=== PATIENT | female | born 1955 | race Native Hawaiian/Other Pacific Islander ===

== ENCOUNTER 2017-11-23 11:34 | Outpatient (CLI) | payer OTHER ==
[2017-11-23 12:19] LABS: PLATELET COUNT 228 K/uL (152-353)
[2017-11-23 13:10] LABS: POTASSIUM 4.1 mmol/L (3.6-5.2)
== END 2017-11-23 22:31 | disposition home or self-care (01) ==
LOC: LABW 11:34
PROVIDERS: Internal Medicine
DX: N18.3 Chronic kidney disease, stage 3 (moderate) (principal); R82.99 Other abnormal findings in urine
CPT/HCPCS: 36415; 80053; 81000; 82043; 82306; 82330; 82570; 82607; 83735; 83970; 84100; 84155; 84439; 84550; 85027; 85651; 86039; 86430; 87077; 87086; 87088; 87186

== ENCOUNTER 2017-12-07 07:10 | Emergency (ER) | payer OTHER ==
[~2017-12-07] VITALS: Ht 162.6 cm; Wt 93.0 kg
[2017-12-07 07:15] VITALS: TEMP 98
[2017-12-07 08:26] LABS: PLATELET COUNT 254 K/uL (152-353)
[2017-12-07 08:30] LABS: POTASSIUM 4.1 mmol/L (3.6-5.2)
[2017-12-07 09:20] VITALS: BP 172/84
== END 2017-12-07 09:20 | disposition home or self-care (01) ==
LOC: ED 07:10
DX: N39.0 Urinary tract infection, site not specified (principal)
CPT/HCPCS: 36600; 80053; 81000; 82805; 83880; 85027; 87077; 87086; 87088; 87186; 93005; 99283

== ENCOUNTER 2017-12-10 08:56 | Outpatient (CLI) | payer OTHER | END 2017-12-10 22:44 | disposition home or self-care (01) | LOC: RESP 08:56 | DX: R06.02 Shortness of breath (principal) ==

== ENCOUNTER 2018-01-11 13:08 | Outpatient (CLI) | payer OTHER ==
[2018-01-11 13:35] LABS: PLATELET COUNT 178 K/uL (152-353)
[2018-01-11 14:04] LABS: POTASSIUM 3.9 mmol/L (3.6-5.2)
== END 2018-01-11 22:50 | disposition home or self-care (01) ==
LOC: LABW 13:08
PROVIDERS: Internal Medicine
DX: N18.3 Chronic kidney disease, stage 3 (moderate) (principal); R60.0 Localized edema; R79.89 Other specified abnormal findings of blood chemistry
CPT/HCPCS: 36415; 80053; 81000; 82043; 82570; 83036; 84155; 84165; 84166; 84439; 84443; 84550; 85027

== ENCOUNTER 2018-02-22 10:46 | Inpatient (IN) | payer OTHER ==
[2018-02-22 17:35] LABS: PLATELET COUNT 173 K/uL (152-353)
[2018-02-22 17:58] LABS: PARTIAL THROMBOPLASTIN TIME 21.9 SECONDS (24.5-33.6)
[2018-02-22 18:46] VITALS: BP 151/77; TEMP 98.1; BMI 35.0
[2018-02-22] MEDS ORDERED: FERROUS SULF325 M1 PO (19:54)
[2018-02-22] MEDS ORDERED: FURO40TA93 PO (19:55)
[2018-02-22] MEDS ORDERED: LISI5TAB10 PO (19:55)
[2018-02-22 20:30] VITALS: BP 155/61; TEMP 97.7
[2018-02-23] VITALS: BP 143/87; TEMP 98.3
[2018-02-23 04:00] VITALS: BP 161/92; TEMP 98.2
[2018-02-23 06:04] LABS: PLATELET COUNT 169 K/uL (152-353)
[2018-02-23 06:19] LABS: POTASSIUM 4.1 mmol/L (3.6-5.2)
[2018-02-23 08:00] VITALS: BP 149/86; TEMP 97.9
[2018-02-23 12:00] VITALS: BP 137/75; TEMP 97.3
[2018-02-23 16:00] VITALS: BP 145/74; TEMP 97.8
[2018-02-23 20:00] VITALS: BP 151/66; TEMP 98.2
[2018-02-24] VITALS: BP 127/64; TEMP 97.6
[2018-02-24 04:00] VITALS: BP 153/67; TEMP 98.1
[2018-02-24 05:06] LABS: PLATELET COUNT 198 K/uL (152-353)
[2018-02-24 05:45] LABS: POTASSIUM 3.8 mmol/L (3.6-5.2)
[2018-02-24 08:00] VITALS: BP 122/74; TEMP 98.8
[2018-02-24 12:00] VITALS: BP 119/71; TEMP 98.6
[2018-02-24 16:00] VITALS: BP 118/69; TEMP 98.6
[2018-02-24 20:14] VITALS: BP 151/83; TEMP 98
[2018-02-25 00:17] VITALS: BP 142/79; TEMP 98.5
[2018-02-25 04:25] VITALS: BP 136/76; TEMP 97.8
[2018-02-25 05:35] LABS: PLATELET COUNT 178 K/uL (152-353)
[2018-02-25 05:56] LABS: POTASSIUM 4.3 mmol/L (3.6-5.2)
[2018-02-25 08:17] VITALS: BP 172/90; TEMP 98
[2018-02-25 12:00] VITALS: BP 131/73; TEMP 97.4
[2018-02-25 16:00] VITALS: BP 135/62; TEMP 98.8
[2018-02-25 19:36] VITALS: BP 146/72; TEMP 98.2
[2018-02-26] VITALS: BP 153/91; TEMP 98.1
[2018-02-26 04:00] VITALS: BP 112/64; TEMP 98.2
[2018-02-26 07:23] LABS: PLATELET COUNT 203 K/uL (152-353)
[2018-02-26 07:34] LABS: POTASSIUM 4.3 mmol/L (3.6-5.2)
[2018-02-26 07:53] VITALS: BP 146/88; TEMP 97.7
[2018-02-26 12:23] VITALS: BP 150/80; TEMP 98.4
[2018-02-26 16:24] VITALS: BP 146/78; TEMP 98.2
[2018-02-26 20:00] VITALS: BP 139/92; TEMP 98
[2018-02-27] VITALS (16 sets, daily range): BP systolic 109–147; BP diastolic 58–83; TEMP 97.8–98.3
[2018-02-27 06:44] LABS: PLATELET COUNT 202 K/uL (152-353)
[2018-02-27 07:15] LABS: POTASSIUM 3.5 mmol/L (3.6-5.2)
[2018-02-28] VITALS (24 sets, daily range): BP systolic 96–149; BP diastolic 38–95; TEMP 97.8–99
[2018-02-28 05:41] LABS: PLATELET COUNT 190 K/uL (152-353)
[2018-02-28 05:59] LABS: POTASSIUM 3.8 mmol/L (3.6-5.2)
[2018-03-01] VITALS (17 sets, daily range): BP systolic 123–156; BP diastolic 57–101; TEMP 98–98.7
[2018-03-01 06:15] LABS: PLATELET COUNT 185 K/uL (152-353)
[2018-03-01 06:23] LABS: POTASSIUM 3.8 mmol/L (3.6-5.2)
[2018-03-01] MEDS ORDERED: MONT10TA PO (14:00)
[2018-03-01] MEDS ORDERED: CEFD300C2 PO (14:00)
[2018-03-01] MEDS ORDERED: PRED20TA27 PO (14:00)
[2018-03-01] MEDS ORDERED: PROAIR HFA IN (14:00)
[2018-03-01] MEDS ORDERED: GUAI600T70 PO (14:00)
[2018-03-01] MEDS ORDERED: LORA10TA3 PO (14:00)
== END 2018-03-01 17:32 | disposition home or self-care (01) | DRG 193 ==
LOC: RAD 10:46 → MED/SURG 15:49 → ICU 02-27 10:35
PROVIDERS: Nurse Practitioner Family; ADMIT Nurse Practitioner
DX: J18.8 Other pneumonia, unspecified organism (principal); I50.23 Acute on chronic systolic (congestive) heart failure; J96.01 Acute respiratory failure with hypoxia; J96.02 Acute respiratory failure with hypercapnia; J44.0 Chronic obstructive pulmonary disease with (acute) lower respiratory infection; J90 Pleural effusion, not elsewhere classified; D50.9 Iron deficiency anemia, unspecified; R06.02 Shortness of breath; R94.31 Abnormal electrocardiogram [ECG] [EKG]; N18.3 Chronic kidney disease, stage 3 (moderate); Z91.14 Patient's other noncompliance with medication regimen
CPT/HCPCS: 36415; 36600; 80053; 82550; 82553; 82805; 83615; 83880; 84145; 84484; 85027; 85610; 85651; 85730; 86140; 87040; 87077; 87185; 87186; 87205; 87899; 93005; 93306; 94640; 94664; 94760; 96365; 96366; 96367; 96372; 96375; J0456; J0696; J1650; J1940; J2543; J2920; J2930; J3370; Q0177

== ENCOUNTER 2018-03-14 09:04 | Outpatient (CLI) | payer OTHER ==
[~2018-03-14 09:04] MED LIST: CEFD300C2 PO; FERROUS SULF325 M1 PO; FURO40TA93 PO; GUAI600T70 PO; LISI5TAB10 PO; LORA10TA3 PO; MONT10TA PO; PRED20TA27 PO; PROAIR HFA IN
== END 2018-03-14 21:04 | disposition home or self-care (01) ==
LOC: LABW 09:04
PROVIDERS: Nurse Practitioner Adult Health
DX: Z79.899 Other long term (current) drug therapy (principal)
CPT/HCPCS: 36415; 80048; 84443

== ENCOUNTER 2018-03-22 14:10 | Outpatient (CLI) | payer OTHER | END 2018-03-22 14:40 | disposition short-term general hospital (02) | LOC: AMB 14:10 | DX: R55 Syncope and collapse (principal); I46.9 Cardiac arrest, cause unspecified | CPT/HCPCS: A0425; A0433 ==

== ENCOUNTER 2018-03-22 14:43 | Emergency (ER) | payer OTHER ==
[~2018-03-22] VITALS: Ht 162.6 cm; Wt 86.2 kg
[2018-03-22 15:18] LABS: PLATELET COUNT 232 K/uL (152-353)
[2018-03-22 15:19] LABS: POTASSIUM 4.9 mmol/L (3.6-5.2); SODIUM 144 mmol/L (136-145)
[2018-03-22 15:29] LABS: PARTIAL THROMBOPLASTIN TIME 24.8 SECONDS (24.5-33.6)
[2018-03-22 16:07] VITALS: BP 142/69; TEMP 97.8
== END 2018-03-22 16:20 | disposition short-term general hospital (02) ==
LOC: ED 14:43
PROC: 0BH17EZ Insertion of Endotracheal Airway into Trachea, Via Natural or Artificial Opening (ICD-10-PCS; principal; 2018-03-22)
PROC: 5A1935Z Respiratory Ventilation, Less than 24 Consecutive Hours (ICD-10-PCS; 2018-03-22)
PROC: 0T9B70Z Drainage of Bladder with Drainage Device, Via Natural or Artificial Opening (ICD-10-PCS; 2018-03-22)
DX: I21.29 ST elevation (STEMI) myocardial infarction involving other sites (principal); I46.9 Cardiac arrest, cause unspecified
CPT/HCPCS: 43754; 51702; 80053; 80307; 81000; 82550; 84484; 85027; 85610; 85730; 93005; 94002; 96365; 96372; 96374; 99291; J1650